=== PATIENT | female | born 1935 | race Caucasian/White ===

== ENCOUNTER 2017-09-19 13:11 | Observation (INO) | payer MEDICARE ==
[~2017-09-19] VITALS: Ht 165.1 cm; Wt 74.4 kg
[2017-09-19] VITALS (7 sets, daily range): BP systolic 143–175; BP diastolic 72–90; PULSE 66–80; RESP 16–20; TEMP 97.7–98; O2SAT 92–97
--- NOTE | 2017-09-19 13:23 | PD ---
HPI Chief Complaint: Chest Pain Time Seen by Provider: 13:23 Travel History International Travel<30 days: No Contact w/Intl Traveler<30days: No Traveled to known affect area: No History of Present Illness HPI 82-year-old female came to the emergency room with history of left-sided chest pressure that radiated under her left breast and to her left arm earlier today. As per the patient it lasted for few minutes. She took 1 regular strength aspirin and she has not had this feeling since then. 4 days ago she had some achiness of her right arm. Because of all these symptoms her daughter got concerned and forced her mother to come to the emergency room. Patient says currently she is chest pain-free. Vital signs are stable. Patient had a stress test done 5 years ago which was negative. She only takes Synthroid since her thyroid surgery. Patient is not a smoker. She does have family history of heart attack mainly among her sisters. No aggravating or relieving factors for the discomfort identified. No history of cough, fever or shortness of breath. [facility] Past Medical History Narrative Medical List of her past medical, surgical, social and family history is reviewed from the nursing note. Social History Tobacco Use: No Allergies-Medications (Allergen,Severity, Reaction): Coded Allergies: ciprofloxacin (Verified Allergy, Severe, Nausea/Vomiting, 09/19/17) codeine (Verified Allergy, Intermediate, Nausea/Vomiting, 09/19/17) Comments List of her allergies reviewed from the nursing note. Reported Meds & Prescriptions Reported Meds & Active Scripts Active Reported Aspirin 325 Mg Tab 325 Mg PO ONCE Levothyroxine (Levothyroxine Sodium) 112 Mcg Tab 112 Mcg PO DAILY Narrative Medication List of her home medications reviewed from the nursing note. Review of Systems Except as stated in HPI: all other systems reviewed are Neg Cardiovascular: Positive: Chest Pain or Discomfort Physical Exam Narrative GENERAL: Awake, alert, no obvious distress SKIN: Focused skin assessment warm/dry. HEAD: Atraumatic. Normocephalic. EYES: Pupils equal and round. No scleral icterus. No injection or drainage. ENT: No nasal bleeding or discharge. Mucous membranes pink and moist. NECK: Trachea midline. No JVD. CARDIOVASCULAR: Regular rate and rhythm. No murmur appreciated. RESPIRATORY: No accessory muscle use. Clear to auscultation. Breath sounds equal bilaterally. GASTROINTESTINAL: Abdomen soft, non-tender, nondistended. Hepatic and splenic margins not palpable. MUSCULOSKELETAL: No obvious deformities. No clubbing. No cyanosis. No edema. NEUROLOGICAL: Awake and alert. No obvious cranial nerve deficits. Motor grossly within normal limits. Normal speech. PSYCHIATRIC: Appropriate mood and affect; insight and judgment normal. Data Data Last Documented VS Orders Orders Electrocardiogram (09/19/17 13:33) Basic Metabolic Panel (Bmp) (09/19/17 13:33) Ckmb (Isoenzyme) Profile (09/19/17 13:33) Complete Blood Count With Diff (09/19/17 13:33) Magnesium (Mg) (09/19/17 13:33) Prothrombin Time / Inr (Pt) (09/19/17 13:33) Act Partial Throm Time (Ptt) (09/19/17 13:33) Troponin I (09/19/17 13:33) Chest, Single Ap (09/19/17 13:33) Ecg Monitoring (09/19/17 13:33) Bilateral Bp Monitoring (09/19/17 13:33) Iv Access Insert/Monitor (09/19/17 13:33) Oximetry (09/19/17 13:33) Oxygen Administration (09/19/17 13:33) Sodium Chloride 0.9% Flush (Ns Flush) (09/19/17 13:45) Admit Order (Ed Use Only) (09/19/17 14:49) Labs Laboratory Tests Test 09/19/17 13:45 White Blood Count 8.8 TH/MM3 Red Blood Count 4.88 MIL/MM3 Hemoglobin 13.3 GM/DL Hematocrit 40.8 % Mean Corpuscular Volume 83.7 FL Mean Corpuscular Hemoglobin 27.3 PG Mean Corpuscular Hemoglobin Concent 32.6 % Red Cell Distribution Width 14.0 % Platelet Count 324 TH/MM3 Mean Platelet Volume 8.1 FL Neutrophils (%) (Auto) 52.8 % Lymphocytes (%) (Auto) 34.9 % Monocytes (%) (Auto) 9.1 % Eosinophils (%) (Auto) 2.3 % Basophils (%) (Auto) 0.9 % Neutrophils # (Auto) 4.6 TH/MM3 Lymphocytes # (Auto) 3.1 TH/MM3 Monocytes # (Auto) 0.8 TH/MM3 Eosinophils # (Auto) 0.2 TH/MM3 Basophils # (Auto) 0.1 TH/MM3 CBC Comment DIFF FINAL Differential Comment Prothrombin Time 10.4 SEC Prothromb Time International Ratio 1.0 RATIO Activated Partial Thromboplast Time 24.7 SEC Blood Urea Nitrogen 19 MG/DL Creatinine 0.84 MG/DL Random Glucose 85 MG/DL Calcium Level 8.2 MG/DL Magnesium Level 2.2 MG/DL Sodium Level 141 MEQ/L Potassium Level 3.8 MEQ/L Chloride Level 106 MEQ/L Carbon Dioxide Level 28.3 MEQ/L Anion Gap 7 MEQ/L Estimat Glomerular Filtration Rate 65 ML/MIN Total Creatine Kinase 48 U/L Troponin I LESS THAN 0.02 NG/ML MDM Medical Decision Making Medical Screen Exam Complete: Yes Emergency Medical Condition: Yes Medical Record Reviewed: Yes Interpretation(s) Twelve-lead EKG was reviewed by me. Normal sinus rhythm, normal axis, nonspecific ST-T wave changes. Heart rate of 77 bpm. Differential Diagnosis ACS, non-STEMI, atypical chest pain Narrative Course 2:37 PM blood test results of back and within acceptable limits. Chest x-ray appears to be negative. I discussed with the patient that given her age and family history she should be hospitalized to rule out ACS followed by a stress test tomorrow. Patient has agreed to that. Awaiting for the hospitalist call back. Procedures EKG Prior to Arrival: No Diagnosis Primary Impression: Chest pain Qualified Codes: R07.9 - Chest pain, unspecified Admitting Information Admitting Physician Requests: Observation Scripts Aspirin (Tgt Aspirin) 81 Mg Chw 81 MG CHEW DAILY for CAD prevention for 30 Days, #30 EA Prov: Bianca Browne 09/20/17 Gabriela Hill MD Sep 19, 2017 13:23
[2017-09-19] MEDS ORDERED: LEVO112T2 PO (13:41)
[2017-09-19] MEDS ORDERED: ASPI-183 PO (13:41)
[2017-09-19] MEDS ORDERED: SODIUM CHLORIDE 0.9% FLUSH 10 ML FLUSH IVF PRN (13:45)
[2017-09-19 13:49] LABS: AUTOMATED NEUTROPHIL # 4.6 TH/MM3 (1.8-7.7); BASOPHIL # 0.1 TH/MM3 (0-0.2); BASOPHIL % 0.9 % (0.0-2.0); EOSINOPHIL # 0.2 TH/MM3 (0-0.4); EOSINOPHIL % 2.3 % (0.0-4.0); HEMATOCRIT 40.8 % (35.0-46.0); HEMOGLOBIN 13.3 GM/DL (11.6-15.3); LYMPH % 34.9 % (9.0-44.0); LYMPHOCYTE # 3.1 TH/MM3 (1.0-4.8); MEAN CELL VOLUME 83.7 FL (80.0-100.0); MEAN CORPUSCULAR HEMOGLOBIN 27.3 PG (27.0-34.0); MEAN CORPUSCULAR HGB CONC 32.6 % (32.0-36.0); MEAN PLATELET VOLUME 8.1 FL (7.0-11.0); MONO % 9.1 % (0.0-8.0); MONOCYTE # 0.8 TH/MM3 (0-0.9); NEUT % 52.8 % (16.0-70.0); PLATELET COUNT 324 TH/MM3 (150-450); RED BLOOD COUNT 4.88 MIL/MM3 (4.00-5.30); WHITE BLOOD COUNT 8.8 TH/MM3 (4.0-11.0)
[2017-09-19 13:57] LABS: CHLORIDE 106 MEQ/L (98-107); SODIUM (NA) 141 MEQ/L (136-145)
[2017-09-19 14:00] LABS: BICARBONATE 28.3 MEQ/L (21.0-32.0); BLOOD UREA NITROGEN 19 MG/DL (7-18); CALCIUM 8.2 MG/DL (8.5-10.1); GLUCOSE,RANDOM 85 MG/DL (74-106); MAGNESIUM 2.2 MG/DL (1.5-2.5)
[2017-09-19 14:03] LABS: PROTHROMBIN TIME - PATIENT 10.4 SEC (9.8-11.6)
[2017-09-19 14:04] LABS: CREATININE 0.84 MG/DL (0.50-1.00); GLOMERULAR FILTRATION RATE 65 ML/MIN (>89)
[2017-09-19 14:08] LABS: TROPONIN I LESS THAN 0.02 NG/ML (0.02-0.05)
--- NOTE | 2017-09-19 14:32 | RADRPT ---
EXAM DATE/TIME: 09/19/2017 14:00 [facility] COMPARISON: No previous studies available for comparison. INDICATIONS : Chest pain today, had right arm pain 3 days ago MEDICAL HISTORY : None. SURGICAL HISTORY : None. ENCOUNTER: Initial ACUITY: 3 days PAIN SCORE: 5/10 LOCATION: Bilateral chest FINDINGS: The heart size is within normal limits. There is minimal increased density the bases. The mid and upp er lungs are clear. No effusion is seen. CONCLUSION: Minimal bibasilar areas of consolidation or atelectasis. Ulises Garcia MD on September 19, 2017 at 14:30 Board Certified Radiologist. This report was verified electronically.
[2017-09-19] MEDS ORDERED: TEMAZEPAM 15 MG CAP PO PRN (15:00)
[2017-09-19] MEDS ORDERED: ENOXAPARIN SODIUM 40 MG/0.4 ML SYRINGE SQ SCH (15:00)
[2017-09-19] MEDS ORDERED: NALOXONE HCL 0.4 MG/ML AMP IV PUSH PRN (15:00)
[2017-09-19] MEDS ORDERED: ASPIRIN 325 MG TAB PO SCH (15:00)
[2017-09-19] MEDS ORDERED: MAGNESIUM HYDROXIDE SUSP 30 ML CUP PO PRN (15:00)
[2017-09-19] MEDS ORDERED: ONDANSETRON HCL 4 MG/2 ML VIAL IVP PRN (15:00)
[2017-09-19] MEDS ORDERED: SENNOSIDES 8.6 MG TAB PO PRN (15:00)
[2017-09-19] MEDS ORDERED: BISACODYL 10 MG SUPP RECTAL PRN (15:00)
[2017-09-19] MEDS ORDERED: SODIUM CHLORIDE 0.9% FLUSH 10 ML FLUSH IV FLUSH PRN (15:00)
[2017-09-19] MEDS ORDERED: LACTULOSE SYRUP 20 GM/30 ML CUP PO PRN (15:00)
[2017-09-19] MEDS ORDERED: ACETAMINOPHEN 325 MG TAB PO PRN (15:00)
--- NOTE | 2017-09-19 15:20 | HHI.HP ---
HPI Service [facility] Primary Care Physician Dorinda Dotson MD Admission Diagnosis Chest pain, rule out ACS Diagnoses: (1) Chest pain Chief Complaint: Chest pain Travel History International Travel<30 Days: No Contact w/Intl Traveler <30 Da: No Traveled to Known Affected Are: No History of Present Illness Written by Bianca Browne, acting as scribe for Dr. Sommers on 09/19/17 at 15:16. Ms. Harris is an 82-year-old female patient with a known medical history of thyroid disease who presented to the ED with complaints of chest pain. Patient states that last morning she woke up and she felt a severe right arm pain that lasted 1 minute and subsided, was pressure-like in nature, transient, and has not returned. Although patient did notice this morning she work up with a left sided chest pressure that radiated to her left axilla, lasted less than one minute and then resolved on its own. Denies any associated nausea, vomiting , diaphoresis or shortness of breath. Denies ever having these symptoms in the past. 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 Patient did undergo a cardiac stress test 5 years ago which was reportedly negative. Denies any recent fever, chills, headache, abdominal pain, nausea, vomiting, diarrhea or dysuria. Review of Systems Constitutional: DENIES: Fever Respiratory: DENIES: Cough, Shortness of breath Cardiovascular: COMPLAINS OF: Chest pain Gastrointestinal: DENIES: Abdominal pain, Constipation, Diarrhea, Vomiting Integumentary: DENIES: Rash Hematologic/lymphatic: DENIES: Bruising Psychiatric: DENIES: Anxiety Except as stated in HPI: all other systems reviewed are Neg Past Family Social History Past Medical History Thyroid disease Past Surgical History Thyroidectomy Hysterectomy Reported Medications Active Reported Aspirin 325 Mg Tab 325 Mg PO ONCE Levothyroxine (Levothyroxine Sodium) 112 Mcg Tab 112 Mcg PO DAILY Allergies: Coded Allergies: ciprofloxacin (Verified Allergy, Severe, Nausea/Vomiting, 09/19/17) codeine (Verified Allergy, Intermediate, Nausea/Vomiting, 09/19/17) Active Ordered Medications Current Medications Medications (Trade) Dose Ordered Sig/Evan Route Start Time Stop Time Status Last Admin (Synthroid) 112 mcg DAILY@0600 PO 09/20/17 06:00 (NS Flush) 2 ml UNSCH PRN IV FLUSH 09/19/17 15:00 (NS Flush) 2 ml BID IV FLUSH 09/19/17 21:00 (Tylenol) 650 mg Q4H PRN PO 09/19/17 15:00 (Zofran Inj) 4 mg Q6H PRN IVP 09/19/17 15:00 (Restoril) 15 mg HS PRN PO 09/19/17 15:00 (Lovenox Inj) 40 mg Q24H SQ 09/19/17 15:00 (Narcan Inj) 0.4 mg UNSCH PRN IV PUSH 09/19/17 15:00 (Carmelita-Colace) 1 tab BID PO 09/19/17 21:00 (Milk Of Magnesia Liq) 30 ml Q12H PRN PO 09/19/17 15:00 (Senokot) 17.2 mg Q12H PRN PO 09/19/17 15:00 (Dulcolax Supp) 10 mg DAILY PRN RECTAL 09/19/17 15:00 (Lactulose Liq) 30 ml DAILY PRN PO 09/19/17 15:00 Family History Both paternal and medical history significant for cardiovascular disease. Social History Denies any history of tobacco use. Admits to drinking alcohol socially. Denies any illicit drug use. Physical Exam Vital Signs Vital Signs Date Time Temp Pulse Resp B/P (MAP) Pulse Ox O2 Delivery O2 Flow Rate FiO2 09/19/17 14:44 70 16 155/90 (111) 97 Room Air 09/19/17 13:45 Nasal Cannula 09/19/17 13:45 96 09/19/17 13:26 80 17 153/87 (109) 95 155/90 (111) Physical Exam GENERAL: This is a well-nourished, well-developed female patient, sitting on side of bed in no apparent distress. SKIN: No rashes, ecchymoses or lesions. Warm and dry. HEAD: Atraumatic. Normocephalic. EYES: Pupils equal round and reactive. Extraocular motions intact. No scleral icterus. No injection or drainage. ENT: Nose without bleeding, purulent drainage or septal hematoma. Throat without erythema, tonsillar hypertrophy or exudate. Uvula midline. Airway patent. NECK: Trachea midline. No JVD. Supple. CARDIOVASCULAR: Regular rate and rhythm without murmurs, gallops, or rubs. No reproducible chest discomfort to palpation. RESPIRATORY: Clear to auscultation. Breath sounds equal bilaterally. No wheezes , rales, or rhonchi. GASTROINTESTINAL: Abdomen soft, non-tender, nondistended. No guarding. MUSCULOSKELETAL: Extremities without clubbing, cyanosis, or edema. No joint tenderness, effusion, or edema noted. NEUROLOGICAL: Awake and alert. Cranial nerves II through XII intact. Motor and sensory grossly within normal limits. Five out of 5 muscle strength in all muscle groups. Normal speech. Laboratory Laboratory Tests Test 09/19/17 13:45 White Blood Count 8.8 Red Blood Count 4.88 Hemoglobin 13.3 Hematocrit 40.8 Mean Corpuscular Volume 83.7 Mean Corpuscular Hemoglobin 27.3 Mean Corpuscular Hemoglobin Concent 32.6 Red Cell Distribution Width 14.0 Platelet Count 324 Mean Platelet Volume 8.1 Neutrophils (%) (Auto) 52.8 Lymphocytes (%) (Auto) 34.9 Monocytes (%) (Auto) 9.1 Eosinophils (%) (Auto) 2.3 Basophils (%) (Auto) 0.9 Neutrophils # (Auto) 4.6 Lymphocytes # (Auto) 3.1 Monocytes # (Auto) 0.8 Eosinophils # (Auto) 0.2 Basophils # (Auto) 0.1 CBC Comment DIFF FINAL Differential Comment Prothrombin Time 10.4 Prothromb Time International Ratio 1.0 Activated Partial Thromboplast Time 24.7 Blood Urea Nitrogen 19 Creatinine 0.84 Random Glucose 85 Calcium Level 8.2 Magnesium Level 2.2 Sodium Level 141 Potassium Level 3.8 Chloride Level 106 Carbon Dioxide Level 28.3 Anion Gap 7 Estimat Glomerular Filtration Rate 65 Total Creatine Kinase 48 Troponin I LESS THAN 0.02 Result Diagram: 09/19/17 1345 09/19/17 1345 Imaging Last Impressions Chest X-Ray 09/19/17 1333 Signed Impressions: Service Date/Time: Tuesday, September 19, 2017 14:00 - CONCLUSION: Minimal bibasilar areas of consolidation or atelectasis. Ulises Garcia MD Septic Shock Reassessment Septic shock perfusion: reassessment completed Caprini VTE Risk Assessment Caprini VTE Risk Assessment: Mod/High Risk (score >= 2) Caprini Risk Assessment Model Point Value = 1 Point Value = 2 Point Value = 3 Point Value = 5 Age 41-60 Minor surgery BMI > 25 kg/m2 Swollen legs Varicose veins or History of unexplained or recurrent spontaneous Oral contraceptives or hormone replacement Sepsis (< 1 month) Serious lung disease, including pneumonia (< 1 month) Abnormal pulmonary function Acute myocardial infarction Congestive heart failure (< 1 month) History of inflammatory bowel disease Medical patient at bed rest Age 61-74 Arthroscopic surgery Major open surgery (> 45 min) Laparoscopic surgery (> 45 min) Malignancy Confined to bed (> 72 hours) Immobilizing plaster cast Central venous access Age >= 75 History of VTE Family history of VTE Factor V Leiden Prothrombin [id number] Lupus anticoagulant Anticardiolipin antibodies Elevated serum homocysteine Heparin-induced thrombocytopenia Other congenital or acquired thrombophilia Stroke (< 1 month) Elective arthroplasty Hip, pelvis, or leg fracture Acute spinal cord injury (< 1 month) Prophylaxis Regimen Total Risk Factor Score Risk Level Prophylaxis Regimen 0-1 Low Early ambulation 2 Moderate Order ONE of the following: *Sequential Compression Device (SCD) *Heparin 5000 units SQ BID 3-4 Higher Order ONE of the following medications: *Heparin 5000 units SQ TID *Enoxaparin/Lovenox 40 mg SQ daily (WT < 150 kg, CrCl > 30 mL/min) *Enoxaparin/Lovenox 30 mg SQ daily (WT < 150 kg, CrCl > 10-29 mL/min) *Enoxaparin/Lovenox 30 mg SQ BID (WT < 150 kg, CrCl > 30 mL/min) AND/OR *Sequential Compression Device (SCD) 5 or more Highest Order ONE of the following medications: *Heparin 5000 units SQ TID (Preferred with Epidurals) *Enoxaparin/Lovenox 40 mg SQ daily (WT < 150 kg, CrCl > 30 mL/min) *Enoxaparin/Lovenox 30 mg SQ daily (WT < 150 kg, CrCl > 10-29 mL/min) *Enoxaparin/Lovenox 30 mg SQ BID (WT < 150 kg, CrCl > 30 mL/min) AND *Sequential Compression Device (SCD) Assessment and Plan Problem List: (1) Chest pain ICD Code: R07.9 - Chest pain, unspecified Status: Acute Plan: Patient has been admitted to the chest pain center. Serial EKGs and serial Troponins have been ordered for ruling out ACS purposes. Initial tropnin flat. EKG reviewed showing NSR, HR controlled. No ST changes to indicate any ischemia. Patient given Aspirin 325 mg in ED. Continue on daily aspirin. Continue cardiac telemetry, monitor for arrhythmias. CXR reviewed showing minimal bibasilar areas of consolidation or atelectasis. Clinically patient is comfortable on RA. Afebrile. WBC WNL. CBC and BMP reviewed essentially unremarkable. Patient denies any current chest pain, all symptoms have resolved. Patient is stable at this time and agreeable to the plan. (2) Hypertension ICD Code: I10 - Essential (primary) hypertension Plan: BP mildly elevated, systolic BP's 150. No history of hypertension. Will continue to monitor. Clonidine PRN as needed. (3) Hypothyroidism ICD Code: E03.9 - Hypothyroidism, unspecified Plan: Continue home Levothyroxine. DVT Prophylaxis: SCDs. Lovenox. Assessment and Plan This note was transcribed by ZAHRAA Hernandez. I, Dr. Kelsi Sommers personally performed the history, physical exam, and medical decision making; and confirmed the accuracy of the information in the transcribed note. Authenticated by Dr. Kelsi Sommers on 09/19/17 at 15:16. Problem Qualifiers (1) Chest pain: Qualified Codes: R07.9 - Chest pain, unspecified Bianca Browne Sep 19, 2017 15:20 Kelsi Sommers MD Sep 19, 2017 17:25
[2017-09-19] MEDS ORDERED: cloNIDine HCL 0.1 MG TAB PO PRN (15:45)
[2017-09-19] MEDS: SODIUM CHLORIDE 0.9% FLUSH 10 ML FLUSH IV FLUSH SCH (20:56)
[2017-09-19] MEDS: DOCUSATE SODIUM 50 MG/SENNA 8.6 MG TAB PO SCH (20:56)
--- NOTE | 2017-09-19 21:45 | EKG ---
Date Performed: 09/19/2017 Time Performed: 19:13:21 PTAGE: 82 years EKG: Sinus rhythm LOW QRS VOLTAGE IN PRECORDIAL LEADS BORDERLINE ECG PREVIOUS TRACING : 09/19/2017 16.44 Compared to prior tracing no significant change DOCTOR: Fer Egan Interpretating Date/Time 09/19/2017 21:45:09
--- NOTE | 2017-09-19 21:52 | EKG ---
Date Performed: 09/19/2017 Time Performed: 16:44:04 PTAGE: 82 years EKG: Sinus rhythm LOW QRS VOLTAGE IN PRECORDIAL LEADS BORDERLINE ECG PREVIOUS TRACING : 09/19/2017 13.20 Compared to prior tracing no significant change DOCTOR: Fer Egan Interpretating Date/Time 09/19/2017 21:52:05
--- NOTE | 2017-09-19 22:10 | EKG ---
Date Performed: 09/19/2017 Time Performed: 13:20:40 PTAGE: 82 years EKG: Sinus rhythm LOW QRS VOLTAGE IN PRECORDIAL LEADS BORDERLINE ECG PREVIOUS TRACING : 07/24/2006 10.29 Compared to prior tracing no significant change DOCTOR: Fer Egan Interpretating Date/Time 09/19/2017 22:09:54
[2017-09-20] VITALS: BP 143/67; PULSE 69; RESP 18; TEMP 96.3; O2SAT 91
[2017-09-20 04:00] VITALS: BP 99/50; PULSE 66; RESP 18; TEMP 96.9; O2SAT 96
[2017-09-20] MEDS ORDERED: LEVOTHYROXINE SODIUM 112 MCG TAB PO SCH (06:00)
[2017-09-20 08:00] VITALS: BP 142/74; PULSE 65; RESP 16; TEMP 96.4; O2SAT 92
[2017-09-20 08:13] LABS: AUTOMATED NEUTROPHIL # 2.9 TH/MM3 (1.8-7.7); BASOPHIL # 0.1 TH/MM3 (0-0.2); BASOPHIL % 1.1 % (0.0-2.0); EOSINOPHIL # 0.2 TH/MM3 (0-0.4); EOSINOPHIL % 3.3 % (0.0-4.0); HEMATOCRIT 39.7 % (35.0-46.0); HEMOGLOBIN 13.3 GM/DL (11.6-15.3); LYMPH % 37.8 % (9.0-44.0); LYMPHOCYTE # 2.4 TH/MM3 (1.0-4.8); MEAN CELL VOLUME 84.1 FL (80.0-100.0); MEAN CORPUSCULAR HEMOGLOBIN 28.2 PG (27.0-34.0); MEAN CORPUSCULAR HGB CONC 33.5 % (32.0-36.0); MEAN PLATELET VOLUME 8.3 FL (7.0-11.0); MONO % 10.6 % (0.0-8.0); MONOCYTE # 0.7 TH/MM3 (0-0.9); NEUT % 47.2 % (16.0-70.0); PLATELET COUNT 301 TH/MM3 (150-450); RED BLOOD COUNT 4.72 MIL/MM3 (4.00-5.30); RED CELL DISTRIBUTION WIDTH 13.8 % (11.6-17.2); WHITE BLOOD COUNT 6.4 TH/MM3 (4.0-11.0)
[2017-09-20 08:25] LABS: BICARBONATE 28.6 MEQ/L (21.0-32.0); CALCIUM 8.4 MG/DL (8.5-10.1)
[2017-09-20 08:28] LABS: CREATININE 0.82 MG/DL (0.50-1.00)
[2017-09-20] MEDS: SODIUM CHLORIDE 0.9% FLUSH 10 ML FLUSH IV FLUSH SCH (09:00)
[2017-09-20] MEDS ORDERED: ASPIRIN 81 MG CHEW TAB CHEW SCH (09:00)
[2017-09-20] MEDS: DOCUSATE SODIUM 50 MG/SENNA 8.6 MG TAB PO SCH (09:56)
--- NOTE | 2017-09-20 10:25 | HHI.PR ---
Subjective Remarks Feels much better. NO chest apin overnight. N fever ro chills.No n/v/d/c. Stress test neg DC home Objective Vitals Vital Signs Date Time Temp Pulse Resp B/P (MAP) Pulse Ox O2 Delivery O2 Flow Rate FiO2 09/20/17 08:00 96.4 65 16 142/74 (96) 92 09/20/17 04:00 96.9 66 18 99/50 (66) 96 09/20/17 00:00 96.3 69 18 143/67 (92) 91 09/19/17 20:00 66 09/19/17 20:00 92 21 09/19/17 20:00 98.0 70 18 175/79 (111) 92 09/19/17 17:47 79 09/19/17 16:30 97.7 69 20 143/72 (95) 93 09/19/17 16:06 76 17 149/75 (99) 97 09/19/17 14:44 70 16 155/90 (111) 97 Room Air 09/19/17 13:45 Nasal Cannula 09/19/17 13:45 96 09/19/17 13:26 80 17 153/87 (109) 95 155/90 (111) I/O 09/19/17 09/19/17 09/19/17 09/20/17 09/20/17 09/20/17 07:00 15:00 23:00 07:00 15:00 23:00 Intake Total 480 ml 240 ml Balance 480 ml 240 ml Intake Oral 480 ml 240 ml # Voids 2 3 # Bowel Movements 0 1 Result Diagram: 09/20/17 0714 09/20/17 0714 Imaging Last Impressions Chest X-Ray 09/19/17 1333 Signed Impressions: Service Date/Time: Tuesday, September 19, 2017 14:00 - CONCLUSION: Minimal bibasilar areas of consolidation or atelectasis. Ulises Garcia MD Objective Remarks GENERAL: This is a well-nourished, well-developed female patient, sitting on side of bed in no apparent distress. CARDIOVASCULAR: Regular rate and rhythm without murmurs, gallops, or rubs. No reproducible chest discomfort to palpation. RESPIRATORY: Clear to auscultation. Breath sounds equal bilaterally. No wheezes , rales, or rhonchi. GASTROINTESTINAL: Abdomen soft, non-tender, nondistended. No guarding. MUSCULOSKELETAL: Extremities without clubbing, cyanosis, or edema. No joint tenderness, effusion, or edema noted. NEUROLOGICAL: Awake and alert. Cranial nerves II through XII intact. Motor and sensory grossly within normal limits. Five out of 5 muscle strength in all muscle groups. Normal speech. A/P Problem List: (1) Chest pain ICD Code: R07.9 - Chest pain, unspecified Status: Acute (2) Hypertension ICD Code: I10 - Essential (primary) hypertension (3) Hypothyroidism ICD Code: E03.9 - Hypothyroidism, unspecified Assessment and Plan Patient has been admitted to the chest pain center. Serial EKGs and serial Troponins have been ordered for ruling out ACS purposes.Trops neg x3 . EKG reviewed showing NSR, HR controlled. No ST changes to indicate any ischemia. Patient given Aspirin 325 mg in ED. Continue on daily aspirin. Continue cardiac telemetry, monitor for arrhythmias. CXR reviewed showing minimal bibasilar areas of consolidation or atelectasis. Clinically patient is comfortable on RA. Afebrile. WBC WNL. CBC and BMP reviewed essentially unremarkable. Patient denies any current chest pain, all symptoms have resolved. Patient is stable at this time and agreeable to the plan. Plan for stress test if negative patient can be DC to f/.u as OP with PCP and consultants Note stress test neg, DC home to f/u as OP with cardio Discharge Planning DC home in stable condition to follow up as OP with PCP and consultants Activity ad onur as tolerated Diet healthy heart diet Meds per med reconciliations Problem Qualifiers (1) Chest pain: Qualified Codes: R07.9 - Chest pain, unspecified Kelsi Sommers MD Sep 20, 2017 10:25
[2017-09-20] MEDS ORDERED: REGADENOSON INJ 0.4 MG/5 ML SYR IV ONE (11:06)
--- NOTE | 2017-09-20 12:18 | RADRPT ---
EXAM DATE/TIME: 09/20/2017 10:49 [facility] COMPARISON: No previous studies available for comparison. INDICATIONS : Substernal chest pain radiating to left arm. Angina. DOSE: 25.4 mCi Tc99m Myoview at stress. 8.5 mCi Tc99m Myoview at rest. 0.4 mg Lexiscan STRESS SYMPTOMS: Headache. EJECTION FRACTION: 67% MEDICAL HISTORY : None SURGICAL HISTORY : Thyroidectomy. Hysterectomy. ENCOUNTER: Initial ACUITY: 1 day PAIN SCALE: 6/10 LOCATION: Substernal chest TECHNIQUE: The patient underwent pharmacologic stress with infusion of prescribed dose. Continuous ECG tracing was monitored during stress. Gated SPECT imaging was performed after stress and conventional SPECT i maging was performed at rest. The examination was performed on a SPECT/CT scanner, both attenuation and non-corrected datasets were reviewed. FINDINGS: DISTRIBUTION: The maximum perfused segment at stress is in the inferior wall. PERFUSION STUDY: The pattern of perfusion at stress is within normal limits. GATED STUDY: There is intact wall motion and thickening without hypokinetic or dyskinetic segments. CONCLUSION: No definite areas of ischemia are seen. RISK CATEGORY: Low (<1% Annual Mortality Rate) Ulises Garcia MD on September 20, 2017 at 12:13 Board Certified Radiologist. This report was verified electronically.
[2017-09-20] MEDS ORDERED: ASPI81 CHEW (12:42)
--- NOTE | 2017-09-20 12:43 | HHI.DCPOC ---
Discharge Care Plan Diagnosis: (1) Chest pain (2) Hypertension (3) Hypothyroidism Your Health Problems Are: Chest Pain Goals to Promote Your Health * To prevent worsening of your condition and complications * To maintain your health at the optimal level Directions to Meet Your Goals Take your medications as prescribed Follow your dietary instruction Follow activity as directed Keep your appointments as scheduled Take your immunizations and boosters as scheduled If your symptoms worsen call your PCP, if no PCP go to Urgent Care Center or Emergency Room Smoking is Dangerous to Your Health. Avoid second hand smoke Call the 24-hour hour crisis hotline for domestic abuse at Bianca Browne Sep 20, 2017 12:43 Kelsi Sommers MD Sep 21, 2017 01:38
--- NOTE | 2017-09-20 13:29 | TR ---
Date Performed: 09/20/2017 Time Performed: 11:13:33 DOCTOR: Masoud Javier DRUG LIST: CLINICAL HISTORY: CHEST PAIN REASON FOR TEST: Chest pain REASON FOR ENDING: OBSERVATION: CONCLUSION: Lexiscan stress test was performed under standard four minute protocol. Radionuclide was injected one minute prior to ending the test. No electrocardiographic abormalities were present to suggest ischemia. Nuclear imaging and interpretation are pending. COMMENTS:
== END 2017-09-20 13:35 | disposition home or self-care (01) ==
LOC: PHED 13:11 → PHEDA 14:50 → UNDOADMOB 14:50 → PH3A 16:12 → PHEDA 16:12 → UNDODISOB 09-20 13:35
PROVIDERS: ADMIT Hospitalist; ATTEND Hospitalist
DX: R07.9 Chest pain, unspecified (principal); I10 Essential (primary) hypertension; E03.9 Hypothyroidism, unspecified; R94.31 Abnormal electrocardiogram [ECG] [EKG]; J98.11 Atelectasis; Z79.82 Long term (current) use of aspirin; Z82.49 Family history of ischemic heart disease and other diseases of the circulatory system; Z90.710 Acquired absence of both cervix and uterus
CPT/HCPCS: 71010; 78452; 80048; 82550; 83735; 84484; 85025; 85610; 85730; 93005; 93017; 96372; 99285; A9502; G0378; J1650; J2785